=== PATIENT | male | born 1945 | race Caucasian/White ===

== ENCOUNTER 2016-03-09 19:00 | Emergency (ER) | payer MEDICARE, OTHER ==
[2016-03-09] MEDS ORDERED: OPTIRAY 350 100 ML VIAL HMH IV ONE (19:01)
== END 2016-03-10 02:30 | disposition home or self-care (01) ==
LOC: ER 19:00
DX: K74.60 Unspecified cirrhosis of liver (principal); R18.8 Other ascites; R10.9 Unspecified abdominal pain; Z79.899 Other long term (current) drug therapy; Z87.891 Personal history of nicotine dependence
CPT/HCPCS: 36415; 74177; 80053; 81003; 83690; 85025; 99284; Q9967